=== PATIENT | male | born 1955 | race Caucasian/White ===

== ENCOUNTER → 2021-08-25 | Outpatient (CLI) | payer MEDICARE ==
[~2021-08-25] MED LIST: DAILY VALUE1 EACH PO; FLOMAX0.4 MG PO; VITAMIN C 500500 MG PO
== END ==
LOC: EXRD 08:00
DX: K86.2 Cyst of pancreas (principal); K82.8 Other specified diseases of gallbladder; R93.89 Abnormal findings on diagnostic imaging of other specified body structures
CPT/HCPCS: 76700